=== PATIENT | male | born 1980 | race Hispanic/Latino ===

== ENCOUNTER 2018-03-14 09:39 | Day surgery (SDC) | payer MEDICAID ==
[~2018-03-14] VITALS: Ht 170.2 cm; Wt 75.9 kg
[2018-03-14 09:48] VITALS: BP 117/77
[2018-03-14] MEDS ORDERED: PANT40TA25 PO (10:44)
[2018-03-14] MEDS ORDERED: OLAN5TAB27 PO (10:44)
[2018-03-14] MEDS ORDERED: OXCA600T10 PO (10:44)
[2018-03-14] MEDS ORDERED: OLAN10TA20 PO (10:44)
[2018-03-14] MEDS ORDERED: SODIUM CHLORIDE 0.9% 1000ML 1,000 ML IV ONE (10:45)
[2018-03-14] MEDS ORDERED: PROPOFOL 10 MG/ML 20ML VIAL IV ONE (12:05)
[2018-03-14 12:17] VITALS: BP 116/72
== END 2018-03-14 12:45 | disposition home or self-care (01) ==
LOC: DAH 09:39 → ENDO 09:39
PROVIDERS: ATTEND Internal Medicine Gastroenterology
DX: K29.50 Unspecified chronic gastritis without bleeding (principal); K21.9 Gastro-esophageal reflux disease without esophagitis; F17.290 Nicotine dependence, other tobacco product, uncomplicated; F17.210 Nicotine dependence, cigarettes, uncomplicated; E78.5 Hyperlipidemia, unspecified; F20.9 Schizophrenia, unspecified; Z68.33 Body mass index [BMI] 33.0-33.9, adult; K27.9 Peptic ulcer, site unspecified, unspecified as acute or chronic, without hemorrhage or perforation
CPT/HCPCS: 43239; 88305; 88312; 88342; J2704; J7030

== ENCOUNTER 2019-10-01 05:52 | Day surgery (SDC) | payer MEDICAID ==
[~2019-10-01] VITALS: Ht 170.2 cm; Wt 72.6 kg
[~2019-10-01 05:52] MED LIST: BREX3TAB PO; OLAN10TA20 PO; OLAN5TAB27 PO; OXCA600T18 PO; PANT40TA25 PO; VALB40CA PO
[2019-10-01] MEDS ORDERED: SODIUM CHLORIDE 0.9% 1000ML 1,000 ML IV ONE (06:08)
[2019-10-01 06:28] VITALS: BP 121/84
[2019-10-01] MEDS ORDERED: PROPOFOL 10 MG/ML 20ML VIAL IV ONE (08:07)
[2019-10-01 08:15] VITALS: BP 123/80
[2019-10-01 08:22] VITALS: BP 115/71
[2019-10-01 08:27] VITALS: BP 124/79
[2019-10-01 08:32] VITALS: BP 124/77
== END 2019-10-01 08:47 | disposition home or self-care (01) ==
LOC: ENDO 05:52 → DAH 05:52 → ENDO 08:47
PROVIDERS: ATTEND Internal Medicine
DX: R10.13 Epigastric pain (principal); K31.89 Other diseases of stomach and duodenum; K22.8 Other specified diseases of esophagus; K44.9 Diaphragmatic hernia without obstruction or gangrene; F17.210 Nicotine dependence, cigarettes, uncomplicated; F20.9 Schizophrenia, unspecified; Z79.899 Other long term (current) drug therapy; F32.9 Major depressive disorder, single episode, unspecified; F41.9 Anxiety disorder, unspecified; G40.909 Epilepsy, unspecified, not intractable, without status epilepticus
CPT/HCPCS: 43239; 88305; A4215; A4221; A4222; A4223; A4606; A4615; A4663; J2704; J7030